=== PATIENT | female | born 1945 | race Caucasian/White ===

== ENCOUNTER 2019-09-12 12:17 | Inpatient (IN) ==
[2019-09-12] MEDS ORDERED: Naloxone 0.4 MG/ML INJ IVP PRN (17:09)
[2019-09-12] MEDS ORDERED: D5% in Water 1,000 ML IVC PRN (18:56)
[2019-09-12] MEDS ORDERED: Dextrose Gel 15 GM/37.5 ML TUBE PO PRN ×2 (18:56)
[2019-09-12] MEDS ORDERED: *HR* Dextrose 50 % in Water (Syg) 50 ML SYRINGE IVP PRN (18:56)
[2019-09-12 19:42] LABS: Basophils % 0.5 %
[2019-09-12 19:44] LABS: Immature Platelets 10.4 % (1.1-6.1)
[2019-09-12 19:51] LABS: Eosinophils # 0.2 K/mcL (0.0-0.6); Hematocrit 35.5 % (35.3-44.9); Immature Granulocytes % 0.8 % (0-4); Lymphocytes # 1.5 K/mcL (0.6-4.6); Lymphocytes % 16.9 %; Mean Corpuscular Hemoglobin 27.4 pg (28.0-33.3); Mean Corpuscular Volume 88.3 fL (83.0-100.0); Mean Platelet Volume 12.8 fL (9.4-12.4); Monocytes # 0.8 K/mcL (0.0-1.3); Monocytes % 9.1 %; Platelet Count 132 K/mcL (140-400); Red Blood Count 4.02 M/mcL (3.82-4.97); Red Cell Distribution Width 19.5 % (11.5-14.5); Segmented Neutrophils % 70.7 %; White Blood Count 8.7 K/mcL (4.3-11.1)
[2019-09-12 20:03] LABS: Estimated Average Glucose 151 mg/dl
[2019-09-12 20:04] LABS: BUN/Creatinine Ratio 10 (6-26); Blood Urea Nitrogen 9 mg/dL (8-23); Calcium 8.5 mg/dL (8.6-10.3); Carbon Dioxide 24 mEq/L (23-29); Chloride 103 mEq/L (98-107); Glucose 168 mg/dL (70-105); Magnesium 1.4 mg/dL (1.6-2.6); Osmolality,Calculated 289 (280-300); Potassium 3.1 mEq/L (3.5-5.1); Sodium 138 mEq/L (136-145); Troponin I 0.03 ng/mL (< 0.04); eGFR For African Americans > 60 (> 60); eGFR For Non-African Americans > 60 (> 60)
[2019-09-12 20:10] LABS: Albumin 3.4 g/dL (3.5-5.7); Albumin/Globulin Ratio 1.1 (1.1-2.2); Bilirubin,Direct 0.3 mg/dL (0.0-0.2); Bilirubin,Indirect 0.5 mg/dL (0.0-1.0); Bilirubin,Total 0.8 mg/dL (0.3-1.0); Globulin 3.1 g/dL (2.4-3.5); Total Protein 6.5 g/dL (6.4-8.9)
[2019-09-12] MEDS ORDERED: Potassium Chloride 40 MEQ, Lidocaine 1% 2 ML in 0.9 % Sodium Chloride 500 ML IVPB ONE (20:17)
[2019-09-12 20:18] LABS: Neutrophils # 6.2 K/mcL (1.6-8.9)
[2019-09-12 20:19] LABS: Platelet Estimate Normal (Normal)
[2019-09-12 20:20] LABS: Anisocytosis 1+ (Not Present)
[2019-09-12 20:56] LABS: VBG HCO3 27 mEq/L (21-27); VBG PCO2 47 mmHg (41-51); VBG PH 7.38 pH Units (7.32-7.42); VBG PO2 51 mmHg (25-50)
[2019-09-12] MEDS ORDERED: Acetaminophen 325 MG TABLET PO PRN (21:23)
[2019-09-12] MEDS ORDERED: Ondansetron 4 MG/2 ML VIAL IVP PRN (21:23)
[2019-09-12] MEDS: *HR* Heparin 5,000 UNIT/ML VIAL SQ SCH (21:53)
[2019-09-12] MEDS ORDERED: Ipratropium/Albuterol Neb 3 ML IH PRN (22:00)
[2019-09-12] MEDS: Pregabalin 75 MG CAPSULE PO SCH (22:00)
[2019-09-12] MEDS: Sucralfate 1 GM TABLET PO SCH (22:00)
[2019-09-13] MEDS: Insulin LISPRO 300 UNITS/3 ML VIAL SQ SCH ×4 (00:04→17:25)
[2019-09-13 01:15] LABS: Hemoglobin 10.6 g/dL (11.5-15.4)
[2019-09-13 01:17] LABS: Basophils # 0.1 K/mcL (0.0-0.2); Basophils % 0.8 %; Eosinophils # 0.2 K/mcL (0.0-0.6); Eosinophils % 2.5 %; Hematocrit 34.6 % (35.3-44.9); Immature Platelets 10.8 % (1.1-6.1); Lymphocytes # 1.5 K/mcL (0.6-4.6); Lymphocytes % 18.4 %; Mean Corpuscular HGB Conc 30.6 g/dL (31.6-35.5); Mean Corpuscular Hemoglobin 26.5 pg (28.0-33.3); Mean Corpuscular Volume 86.5 fL (83.0-100.0); Mean Platelet Volume 12.1 fL (9.4-12.4); Monocytes # 0.9 K/mcL (0.0-1.3); Monocytes % 11.3 %; Neutrophils # 5.2 K/mcL (1.6-8.9); Platelet Count 112 K/mcL (140-400); Red Cell Distribution Width 19.6 % (11.5-14.5); White Blood Count 7.9 K/mcL (4.3-11.1)
[2019-09-13 01:26] LABS: BUN/Creatinine Ratio 9 (6-26); Blood Urea Nitrogen 8 mg/dL (8-23); Calcium 8.4 mg/dL (8.6-10.3); Carbon Dioxide 24 mEq/L (23-29); Chloride 107 mEq/L (98-107); Glucose 113 mg/dL (70-105); Magnesium 2.2 mg/dL (1.6-2.6); Osmolality,Calculated 287 (280-300); Potassium 3.4 mEq/L (3.5-5.1); Sodium 139 mEq/L (136-145); eGFR For African Americans > 60 (> 60); eGFR For Non-African Americans > 60 (> 60)
[2019-09-13 01:39] LABS: Thyroid Stimulating Hormone 4.015 mcIU/mL (0.340-5.600)
[2019-09-13 03:25] LABS: Hepatitis A Antibody IgM Nonreactive (Nonreactive)
[2019-09-13 03:38] LABS: Hepatitis C Virus Antibody Nonreactive (Nonreactive)
[2019-09-13 04:00] LABS: Hepatitis B Surface Antigen Reactive (Nonreactive)
[2019-09-13] MEDS: *HR* Heparin 5,000 UNIT/ML VIAL SQ SCH ×3 (05:31→22:49)
[2019-09-13 07:46] LABS: ABG Base Excess 0 mEq/L (-2 to 3); ABG HCO3 25 mEq/L (21-27); ABG Oxygen Saturation 97 % (95-98); ABG PCO2 40 mmHg (35-45); ABG PO2 88 mmHg (85-104); ABG TCO2 26 mEq/L (20-26)
[2019-09-13] MEDS ORDERED: Loratadine 10 MG TABLET PO SCH (09:00)
[2019-09-13] MEDS: Folic Acid 1 MG TABLET PO SCH (11:56)
[2019-09-13] MEDS: Cholecalciferol (D-3) 1,000 UNIT (25MCG) TABLET PO SCH (11:56)
[2019-09-13] MEDS: Aspirin 81 MG TAB.CHEW PO SCH (11:56)
[2019-09-13] MEDS: Sucralfate 1 GM TABLET PO SCH ×3 (11:56→20:24)
[2019-09-13] MEDS: Furosemide 20 MG TABLET PO SCH (11:56)
[2019-09-13] MEDS: Pregabalin 75 MG CAPSULE PO SCH ×2 (11:57→20:25)
[2019-09-14] MEDS: Insulin LISPRO 300 UNITS/3 ML VIAL SQ SCH ×5 (00:54→23:46)
[2019-09-14 02:43] LABS: BUN/Creatinine Ratio 11 (6-26); Blood Urea Nitrogen 8 mg/dL (8-23); Calcium 8.7 mg/dL (8.6-10.3); Carbon Dioxide 23 mEq/L (23-29); Chloride 110 mEq/L (98-107); Glucose 124 mg/dL (70-105); Magnesium 1.6 mg/dL (1.6-2.6); Osmolality,Calculated 284 (280-300); Potassium 3.4 mEq/L (3.5-5.1); Sodium 137 mEq/L (136-145); eGFR For African Americans > 60 (> 60); eGFR For Non-African Americans > 60 (> 60)
[2019-09-14 03:02] LABS: Basophils % 0.8 %; Eosinophils # 0.2 K/mcL (0.0-0.6); Eosinophils % 3.4 %; Hemoglobin 10.3 g/dL (11.5-15.4); Lymphocytes # 1.1 K/mcL (0.6-4.6); Lymphocytes % 21.1 %; Mean Corpuscular HGB Conc 31.2 g/dL (31.6-35.5); Mean Corpuscular Hemoglobin 26.7 pg (28.0-33.3); Mean Corpuscular Volume 85.5 fL (83.0-100.0); Monocytes # 0.6 K/mcL (0.0-1.3); Monocytes % 10.5 %; Red Blood Count 3.86 M/mcL (3.82-4.97); Red Cell Distribution Width 19.8 % (11.5-14.5); Segmented Neutrophils % 63.2 %; White Blood Count 5.3 K/mcL (4.3-11.1)
[2019-09-14 03:10] LABS: Folate > 22.3 ng/mL (3.0-16.0); Vitamin B12 352 pg/mL (250-1100)
[2019-09-14 04:04] LABS: Neutrophils # 3.4 K/mcL (1.6-8.9); Platelet Count 97 K/mcL (140-400)
[2019-09-14 04:07] LABS: Platelet Estimate Decreased (Normal)
[2019-09-14] MEDS: *HR* Heparin 5,000 UNIT/ML VIAL SQ SCH ×3 (05:32→21:12)
[2019-09-14 06:30] LABS: ABG Base Excess 2 mEq/L (-2 to 3); ABG HCO3 25 mEq/L (21-27); ABG Oxygen Saturation 95 % (95-98); ABG PCO2 32 mmHg (35-45); ABG PH 7.51 pH Units (7.32-7.45); ABG PO2 68 mmHg (85-104); ABG TCO2 26 mEq/L (20-26)
[2019-09-14] MEDS: Aspirin 81 MG TAB.CHEW PO SCH (08:44)
[2019-09-14] MEDS: Furosemide 20 MG TABLET PO SCH (08:44)
[2019-09-14] MEDS: Pregabalin 75 MG CAPSULE PO SCH ×2 (08:46→20:20)
[2019-09-14] MEDS: Sucralfate 1 GM TABLET PO SCH ×3 (08:46→20:20)
[2019-09-14] MEDS: Folic Acid 1 MG TABLET PO SCH (08:46)
[2019-09-14] MEDS: Cholecalciferol (D-3) 1,000 UNIT (25MCG) TABLET PO SCH (12:48)
[2019-09-14] MEDS: Lactulose Oral Soln 20 GM/30 ML UDC PO ONE ×2 (13:29→14:49)
[2019-09-15] MEDS: *HR* Heparin 5,000 UNIT/ML VIAL SQ SCH ×3 (05:28→21:13)
[2019-09-15] MEDS: Insulin LISPRO 300 UNITS/3 ML VIAL SQ SCH ×3 (05:55→20:00)
[2019-09-15] MEDS: Pregabalin 75 MG CAPSULE PO SCH ×2 (08:53→20:17)
[2019-09-15] MEDS: Folic Acid 1 MG TABLET PO SCH (08:53)
[2019-09-15] MEDS: Sucralfate 1 GM TABLET PO SCH ×3 (08:53→20:17)
[2019-09-15] MEDS: Aspirin 81 MG TAB.CHEW PO SCH (08:54)
[2019-09-15] MEDS: Furosemide 20 MG TABLET PO SCH (08:54)
[2019-09-15] MEDS ORDERED: 0.9 % Sodium Chloride 500 ML IV ONE (11:36)
[2019-09-15] MEDS ORDERED: Lactulose Oral Soln 20 GM/30 ML UDC PO PRN (14:23)
[2019-09-15] MEDS: Cholecalciferol (D-3) 1,000 UNIT (25MCG) TABLET PO SCH (14:26)
[2019-09-16] MEDS: *HR* Heparin 5,000 UNIT/ML VIAL SQ SCH ×3 (06:06→21:16)
[2019-09-16] MEDS: Insulin LISPRO 300 UNITS/3 ML VIAL SQ SCH ×4 (06:06→21:16)
[2019-09-16] MEDS: Aspirin 81 MG TAB.CHEW PO SCH (08:07)
[2019-09-16] MEDS: Cholecalciferol (D-3) 1,000 UNIT (25MCG) TABLET PO SCH (08:07)
[2019-09-16] MEDS: Sucralfate 1 GM TABLET PO SCH ×3 (08:08→21:26)
[2019-09-16] MEDS: Folic Acid 1 MG TABLET PO SCH (08:08)
[2019-09-16] MEDS: Furosemide 20 MG TABLET PO SCH (08:08)
[2019-09-16] MEDS: Pregabalin 75 MG CAPSULE PO SCH ×2 (08:08→21:25)
[2019-09-17] MEDS: *HR* Heparin 5,000 UNIT/ML VIAL SQ SCH ×3 (06:02→21:29)
[2019-09-17] MEDS: Insulin LISPRO 300 UNITS/3 ML VIAL SQ SCH ×4 (08:23→21:28)
[2019-09-17] MEDS: Pregabalin 75 MG CAPSULE PO SCH ×2 (09:28→21:29)
[2019-09-17] MEDS: Sucralfate 1 GM TABLET PO SCH ×3 (09:28→21:30)
[2019-09-17] MEDS: Folic Acid 1 MG TABLET PO SCH (09:29)
[2019-09-17] MEDS: Furosemide 20 MG TABLET PO SCH (09:29)
[2019-09-17] MEDS: Aspirin 81 MG TAB.CHEW PO SCH (09:29)
[2019-09-17] MEDS: Cholecalciferol (D-3) 1,000 UNIT (25MCG) TABLET PO SCH (09:29)
[2019-09-17] MEDS: Menthol 9.1 MG LOZENGE PO PRN (21:34)
[2019-09-18] MEDS: *HR* Heparin 5,000 UNIT/ML VIAL SQ SCH ×3 (05:37→20:38)
[2019-09-18] MEDS: Insulin LISPRO 300 UNITS/3 ML VIAL SQ SCH ×4 (06:55→17:05)
[2019-09-18] MEDS: Cholecalciferol (D-3) 1,000 UNIT (25MCG) TABLET PO SCH ×2 (06:56→08:34)
[2019-09-18] MEDS: Aspirin 81 MG TAB.CHEW PO SCH (08:32)
[2019-09-18] MEDS: Sucralfate 1 GM TABLET PO SCH ×3 (08:32→20:38)
[2019-09-18] MEDS: Folic Acid 1 MG TABLET PO SCH (08:33)
[2019-09-18] MEDS: Furosemide 20 MG TABLET PO SCH (08:33)
[2019-09-18] MEDS: Pregabalin 75 MG CAPSULE PO SCH ×2 (08:34→20:38)
[2019-09-18] MEDS: Menthol 9.1 MG LOZENGE PO PRN (17:09)
[2019-09-18] MEDS ORDERED: Insulin LISPRO 300 UNITS/3 ML VIAL SQ SCH (21:00)
[2019-09-19] MEDS: *HR* Heparin 5,000 UNIT/ML VIAL SQ SCH ×2 (05:45→14:09)
[2019-09-19] MEDS: Insulin LISPRO 300 UNITS/3 ML VIAL SQ SCH ×2 (07:36→11:36)
[2019-09-19] MEDS: Aspirin 81 MG TAB.CHEW PO SCH (07:37)
[2019-09-19] MEDS: Sucralfate 1 GM TABLET PO SCH ×2 (07:37→14:10)
[2019-09-19] MEDS: Pregabalin 75 MG CAPSULE PO SCH (07:37)
[2019-09-19] MEDS: Furosemide 20 MG TABLET PO SCH (07:37)
[2019-09-19] MEDS: Cholecalciferol (D-3) 1,000 UNIT (25MCG) TABLET PO SCH (07:38)
[2019-09-19] MEDS: Folic Acid 1 MG TABLET PO SCH (07:38)
[2019-09-19 11:34] VITALS: BP 134/73
== END 2019-09-19 16:55 | DRG 52 ==
LOC: 3BNU → SUATTDRO 15:52
PROVIDERS: ADMIT Pharmacist; ATTEND Internal Medicine

== ENCOUNTER 2019-10-07 13:12 | Observation (INO) ==
[2019-10-07 13:52] LABS: Basophils % 0.9 %; Red Cell Distribution Width 18.5 % (11.5-14.5); Segmented Neutrophils % 61.8 %
[2019-10-07 13:54] LABS: Basophils # 0.1 K/mcL (0.0-0.2); Eosinophils # 0.2 K/mcL (0.0-0.6); Eosinophils % 2.2 %; Hematocrit 47.9 % (35.3-44.9); Immature Granulocytes % 1.6 % (0-4); Immature Platelets 16.1 % (1.1-6.1); Lymphocytes # 2.7 K/mcL (0.6-4.6); Lymphocytes % 24.8 %; Mean Corpuscular HGB Conc 29.2 g/dL (31.6-35.5); Monocytes # 0.9 K/mcL (0.0-1.3); Monocytes % 8.7 %; Neutrophils # 6.6 K/mcL (1.6-8.9); Platelet Count 206 K/mcL (140-400); Red Blood Count 5.38 M/mcL (3.82-4.97); White Blood Count 10.7 K/mcL (4.3-11.1)
[2019-10-07 14:19] LABS: Platelet Estimate Normal (Normal)
[2019-10-07 14:56] LABS: INR 1.4; Prothrombin Time 15.5 Seconds (9.4-12.1)
[2019-10-07 14:58] LABS: Activated Partial Thrombo Time 29.7 Seconds (26.0-36.0)
[2019-10-07 15:11] LABS: Albumin 3.9 g/dL (3.5-5.7); Albumin/Globulin Ratio 1.3 (1.1-2.2); Bilirubin,Direct 0.4 mg/dL (0.0-0.2); Bilirubin,Indirect 0.7 mg/dL (0.0-1.0); Bilirubin,Total 1.1 mg/dL (0.3-1.0); Calcium 9.8 mg/dL (8.6-10.3); Potassium 3.8 mEq/L (3.5-5.1); Total Protein 6.9 g/dL (6.4-8.9)
[2019-10-07 15:55] LABS: Bilirubin,Urine Negative (Negative); Blood,Urine Negative (Negative); Color,Urine Yellow (Yellow); Glucose,Urine (UA) Normal (Normal); Ketones,Urine Negative (Negative); Leukocyte Esterase,Urine Large (Negative); Nitrite,Urine Negative (Negative); PH,Urine 5.5 pH Units (5.0-8.0); Protein,Urine Negative (Neg-Trace); Specific Gravity,Urine 1.019 (1.010-1.025); Urobilinogen,Urine Normal (Normal)
[2019-10-07 15:56] LABS: Bacteria,Urine None Seen per hpf (None-Few); Hyaline Casts,Urine None Seen per lpf (None-Few); RBC,Urine 0-3 per hpf (0-3); Squamous Epithelial Cell,Urine Many per lpf (None-Few); WBC,Urine 15-30 per hpf (0-3)
[2019-10-07 15:59] LABS: Clarity,Urine Clear (Clear)
[2019-10-07] MEDS ORDERED: cefTRIAXone 1,000 MG in Water for inj. (sterile) 10 ML IVP ONE (16:01)
[2019-10-07] MEDS ORDERED: 0.9 % Sodium Chloride 1,000 ML ONE (16:07)
[2019-10-07] MEDS ORDERED: 0.9 % Sodium Chloride 1,000 ML IV ONE (16:19)
[2019-10-07] MEDS ORDERED: *HR* HYDROcodone/Acet 5/325 mg TABLET PO ONE (16:20)
[2019-10-07] MEDS ORDERED: Ipratropium/Albuterol Neb 3 ML IH PRN (16:22)
[2019-10-07] MEDS ORDERED: *HR* HYDROcodone/Acet 7.5/325 mg TABLET PO PRN (16:22)
[2019-10-07] MEDS ORDERED: Mag Hydrox/Al Hydrox/Simeth 30 ML UDC PO PRN (16:27)
[2019-10-07] MEDS ORDERED: Acetaminophen 325 MG TABLET PO PRN (16:27)
[2019-10-07] MEDS ORDERED: Ondansetron ODT 4 MG TAB.RAPDIS SL PRN (16:27)
[2019-10-07] MEDS ORDERED: MOM Conc 10 ML UD.LIQ PO PRN (16:27)
[2019-10-07] MEDS ORDERED: Naloxone 0.4 MG/ML INJ IVP PRN (16:27)
[2019-10-07] MEDS: 0.9 % Sodium Chloride 1,000 ML IVC SCH (17:48)
[2019-10-07] MEDS ORDERED: *HR* Dextrose 50 % in Water (Syg) 50 ML SYRINGE IVP PRN (17:57)
[2019-10-07] MEDS ORDERED: D5% in Water 1,000 ML IVC PRN (17:57)
[2019-10-07] MEDS ORDERED: Dextrose Gel 15 GM/37.5 ML TUBE PO PRN ×2 (17:57)
[2019-10-07] MEDS: Insulin LISPRO 300 UNITS/3 ML VIAL SQ SCH (19:38)
[2019-10-07 19:40] LABS: Adenovirus Not Detected (Not Detect); Coronavirus 229E Not Detected (Not Detect); Coronavirus HKU1 Not Detected (Not Detect); Coronavirus NL63 Not Detected (Not Detect); Coronavirus OC43 Not Detected (Not Detect); Human Metapneumovirus Not Detected (Not Detect); Human Rhinovirus/Enterovirus Not Detected (Not Detect); Influenza A Subtype 2009 H1 Not Detected (Not Detect)
[2019-10-07 19:41] LABS: Bordetella Pertussis Not Detected (Not Detect); Chlamydophila pneumoniae Not Detected (Not Detect); Influenza B Not Detected (Not Detect); Mycoplasma pneumoniae Not Detected (Not Detect); Parainfluenza Virus 1 Not Detected (Not Detect); Parainfluenza Virus 2 Not Detected (Not Detect); Parainfluenza Virus 3 Not Detected (Not Detect); Parainfluenza Virus 4 Not Detected (Not Detect); Respiratory Syncytial Virus Not Detected (Not Detect)
[2019-10-07] MEDS: Sucralfate 1 GM TABLET PO SCH (21:03)
[2019-10-08 01:17] LABS: Mean Corpuscular Volume 88.4 fL (83.0-100.0)
[2019-10-08 01:19] LABS: Hematocrit 38.8 % (35.3-44.9); Hemoglobin 11.9 g/dL (11.5-15.4); Immature Platelets 11.6 % (1.1-6.1); Mean Corpuscular HGB Conc 30.7 g/dL (31.6-35.5); Mean Corpuscular Hemoglobin 27.1 pg (28.0-33.3); Platelet Count 125 K/mcL (140-400); Red Blood Count 4.39 M/mcL (3.82-4.97); White Blood Count 6.5 K/mcL (4.3-11.1)
[2019-10-08 01:36] LABS: BUN/Creatinine Ratio 19 (6-26); Blood Urea Nitrogen 20 mg/dL (8-23); Calcium 8.7 mg/dL (8.6-10.3); Carbon Dioxide 23 mEq/L (23-29); Chloride 110 mEq/L (98-107); Glucose 99 mg/dL (70-105); Osmolality,Calculated 291 (280-300); Phosphorous 3.2 mg/dL (2.7-4.5); Potassium 3.6 mEq/L (3.5-5.1); Sodium 139 mEq/L (136-145); eGFR For African Americans > 60 (> 60); eGFR For Non-African Americans 50 (> 60)
[2019-10-08] MEDS: 0.9 % Sodium Chloride 1,000 ML IVC SCH (05:29)
[2019-10-08] MEDS: Insulin LISPRO 300 UNITS/3 ML VIAL SQ SCH ×4 (08:21→20:11)
[2019-10-08] MEDS: Sucralfate 1 GM TABLET PO SCH ×4 (08:24→20:10)
[2019-10-08] MEDS: Folic Acid 1 MG TABLET PO SCH (08:24)
[2019-10-08] MEDS: Furosemide 20 MG TABLET PO SCH (08:25)
[2019-10-08] MEDS: Aspirin 81 MG TAB.CHEW PO SCH (08:25)
[2019-10-08] MEDS: Lactulose Oral Soln 20 GM/30 ML UDC PO SCH ×3 (10:22→20:10)
[2019-10-08] MEDS: cefTRIAXone 1,000 MG in Water for inj. (sterile) 10 ML IVP SCH (10:22)
[2019-10-09 04:19] LABS: Red Cell Distribution Width 18.2 % (11.5-14.5)
[2019-10-09 04:21] LABS: Hematocrit 47.1 % (35.3-44.9); Hemoglobin 13.9 g/dL (11.5-15.4); Immature Platelets 15.7 % (1.1-6.1); Mean Corpuscular HGB Conc 29.5 g/dL (31.6-35.5); Mean Corpuscular Hemoglobin 26.2 pg (28.0-33.3); Mean Corpuscular Volume 88.7 fL (83.0-100.0); Platelet Count 186 K/mcL (140-400); Red Blood Count 5.31 M/mcL (3.82-4.97); White Blood Count 11.2 K/mcL (4.3-11.1)
[2019-10-09 04:39] LABS: BUN/Creatinine Ratio 12 (6-26); Blood Urea Nitrogen 13 mg/dL (8-23); Calcium 9.5 mg/dL (8.6-10.3); Carbon Dioxide 22 mEq/L (23-29); Chloride 107 mEq/L (98-107); Glucose 133 mg/dL (70-105); Osmolality,Calculated 294 (280-300); Potassium 3.5 mEq/L (3.5-5.1); Sodium 141 mEq/L (136-145); eGFR For African Americans > 60 (> 60); eGFR For Non-African Americans 50 (> 60)
[2019-10-09] MEDS: cefTRIAXone 1,000 MG in Water for inj. (sterile) 10 ML IVP SCH (07:50)
[2019-10-09] MEDS: Lactulose Oral Soln 20 GM/30 ML UDC PO SCH (07:51)
[2019-10-09] MEDS: Insulin LISPRO 300 UNITS/3 ML VIAL SQ SCH ×2 (07:51→11:44)
[2019-10-09] MEDS: Furosemide 20 MG TABLET PO SCH (07:51)
[2019-10-09] MEDS: Sucralfate 1 GM TABLET PO SCH ×2 (07:51→11:44)
[2019-10-09] MEDS: Folic Acid 1 MG TABLET PO SCH (07:51)
[2019-10-09] MEDS: Aspirin 81 MG TAB.CHEW PO SCH (07:51)
[2019-10-09 11:19] VITALS: BP 130/84
[2019-10-09 13:05] LABS: Hematocrit 44.5 % (35.3-44.9); Hemoglobin 13.5 g/dL (11.5-15.4); Mean Corpuscular HGB Conc 30.3 g/dL (31.6-35.5); Mean Corpuscular Hemoglobin 26.3 pg (28.0-33.3); Mean Corpuscular Volume 86.6 fL (83.0-100.0); Platelet Count 155 K/mcL (140-400); Red Blood Count 5.14 M/mcL (3.82-4.97); Red Cell Distribution Width 18.2 % (11.5-14.5); White Blood Count 9.8 K/mcL (4.3-11.1)
== END 2019-10-09 15:15 | disposition home or self-care (01) ==
LOC: 2ANU 13:12 → EMEROOARM 13:12 → SUATTDRO 16:18 → 2ANU 17:10
PROVIDERS: ADMIT Internal Medicine; ATTEND Internal Medicine

== ENCOUNTER 2019-11-27 05:58 | Inpatient (IN) ==
[2019-11-27] MEDS ORDERED: NiCARdipine 2.5 MG/10 ML Syringe IVPB ONE (06:44)
[2019-11-27] MEDS ORDERED: *HR* Vasopressin 20 UNIT/ML VIAL ONE (06:44)
[2019-11-27] MEDS ORDERED: Albumin Human 5% 12.5 GM/250 ML IV.SOLN ONE (06:44)
[2019-11-27] MEDS ORDERED: Plasma-Lyte A (PH 7.4) 1,000 ML IVC SCH (06:45)
[2019-11-27] MEDS ORDERED: Ringers Solution, Lactated 1,000 ML IVC SCH ×2 (06:45→07:15)
[2019-11-27] MEDS ORDERED: Lidocaine -MPF 4% 5 ML AMPUL ONE (06:54)
[2019-11-27] MEDS ORDERED: Ondansetron 4 MG/2 ML VIAL ONE (06:59)
[2019-11-27] MEDS ORDERED: Lidocaine -MPF 2% 2 ML VIAL ONE ×2 (06:59→07:17)
[2019-11-27] MEDS ORDERED: *HR* Heparin 5,000 UNIT/ML VIAL ONE (06:59)
[2019-11-27] MEDS ORDERED: Heparin 1,000 UNITS/500 mL 500 ML ONE ×2 (06:59→07:36)
[2019-11-27] MEDS ORDERED: *HR* FentaNYL (PF) 100 MCG/2 ML VIAL ONE ×2 (06:59→08:42)
[2019-11-27] MEDS ORDERED: *HR* Propofol 200 MG/20 ML VIAL IVP ONE (06:59)
[2019-11-27] MEDS ORDERED: *HR* Succinylcholine 200 MG/10 ML VIAL IVP ONE (06:59)
[2019-11-27] MEDS ORDERED: Dexamethasone 4 MG/ML VIAL ONE (06:59)
[2019-11-27] MEDS ORDERED: *HR* Midazolam HCl 2 MG/2 ML VIAL ONE (06:59)
[2019-11-27] MEDS ORDERED: *HR* Remifentanil 2 MG VIAL IVP ONE (06:59)
[2019-11-27] MEDS ORDERED: *HR* Phenylephrine 10 MG/ML VIAL ONE (06:59)
[2019-11-27] MEDS ORDERED: EPHEDrine 50 MG/ML VIAL ONE (06:59)
[2019-11-27] MEDS ORDERED: Famotidine 20 MG/2 ML VIAL IVP ONE (07:09)
[2019-11-27] MEDS ORDERED: Acetaminophen IV 1,000 MG/100 ML INFUS..BTL IVPB ONE (07:09)
[2019-11-27] MEDS ORDERED: *HR* OxyCODONE Immed Rel 5 MG TABLET PO PRN ×3 (07:10→15:34)
[2019-11-27] MEDS ORDERED: *HR* HYDROmorphone PF 0.5 MG/0.5 ML SYRINGE IVP PRN (07:10)
[2019-11-27] MEDS ORDERED: *HR* Promethazine 25 MG/ML VIAL IVP PRN (07:10)
[2019-11-27] MEDS ORDERED: Ondansetron 4 MG/2 ML VIAL IVP ONE (07:10)
[2019-11-27] MEDS ORDERED: *HR* Labetalol 20 MG/4 ML SYRINGE IVP PRN ×2 (07:10→15:34)
[2019-11-27] MEDS ORDERED: Protamine Sulfate 50 MG/5 ML VIAL IVP ONE (07:14)
[2019-11-27] MEDS ORDERED: Bupivacaine-MPF 0.25% 10 ML VIAL ONE (07:14)
[2019-11-27] MEDS ORDERED: *HR* Labetalol 20 MG/4 ML SYRINGE IVP ONE (09:26)
[2019-11-27] MEDS ORDERED: Vancomycin 1,000 MG, Sodium Chloride IRRigation 1,000 ML IR ONE (10:55)
[2019-11-27] MEDS ORDERED: Ergocalciferol (VIT D2) 50,000 UNIT (1.25MG) CAP PO SCH (15:34)
[2019-11-27] MEDS ORDERED: Dextrose Gel 15 GM/37.5 ML TUBE PO PRN ×2 (15:34)
[2019-11-27] MEDS ORDERED: Ondansetron 4 MG/2 ML VIAL IVP PRN (15:34)
[2019-11-27] MEDS ORDERED: 0.9 % Sodium Chloride 1,000 ML IVC SCH (15:34)
[2019-11-27] MEDS ORDERED: *HR* HYDROcodone/Acet 5/325 mg TABLET PO PRN ×2 (15:34)
[2019-11-27] MEDS ORDERED: *HR* Dextrose 50 % in Water (Syg) 50 ML SYRINGE IVP PRN (15:34)
[2019-11-27] MEDS ORDERED: D5% in Water 1,000 ML IVC PRN (15:34)
[2019-11-27] MEDS ORDERED: Naloxone 0.4 MG/ML INJ IVP PRN (15:34)
[2019-11-27] MEDS ORDERED: Acetaminophen 325 MG TABLET PO PRN (15:34)
[2019-11-27] MEDS: Lactulose Oral Soln 20 GM/30 ML UDC PO SCH ×2 (15:57→20:57)
[2019-11-27] MEDS: Folic Acid 1 MG TABLET PO SCH (15:57)
[2019-11-27] MEDS: Aspirin 81 MG TAB.CHEW PO SCH (15:57)
[2019-11-27] MEDS: Furosemide 20 MG TABLET PO SCH (15:58)
[2019-11-27] MEDS: allopurinoL 300 MG TABLET PO SCH (15:58)
[2019-11-27] MEDS ORDERED: ceFAZolin 2,000 MG in 0.9 % Sodium Chloride 100 ML IVPB SCH (16:00)
[2019-11-27] MEDS: *HR* Metoprolol 5 MG/5 ML VIAL IVP SCH ×2 (17:42→23:39)
[2019-11-27] MEDS: Insulin LISPRO 300 UNITS/3 ML VIAL SQ SCH ×3 (17:54→21:11)
[2019-11-27] MEDS: Acetaminophen 325 MG TABLET PO PRN (18:22)
[2019-11-28] MEDS ORDERED: *HR* Heparin 5,000 UNIT/ML VIAL SQ SCH (06:00)
[2019-11-28] MEDS: *HR* Heparin 5,000 UNIT/ML VIAL SQ SCH ×2 (06:28→16:05)
[2019-11-28] MEDS: *HR* Metoprolol 5 MG/5 ML VIAL IVP SCH (06:28)
[2019-11-28] MEDS: Insulin LISPRO 300 UNITS/3 ML VIAL SQ SCH ×4 (07:58→21:40)
[2019-11-28] MEDS: Folic Acid 1 MG TABLET PO SCH (08:17)
[2019-11-28] MEDS: Lactulose Oral Soln 20 GM/30 ML UDC PO SCH ×3 (08:17→20:52)
[2019-11-28] MEDS: Aspirin 81 MG TAB.CHEW PO SCH (08:17)
[2019-11-28] MEDS: allopurinoL 300 MG TABLET PO SCH (08:17)
[2019-11-28] MEDS: Furosemide 20 MG TABLET PO SCH (08:17)
[2019-11-28] MEDS: Acetaminophen 325 MG TABLET PO PRN (13:39)
[2019-11-29] MEDS: *HR* Heparin 5,000 UNIT/ML VIAL SQ SCH ×2 (05:52→16:20)
[2019-11-29] MEDS: Insulin LISPRO 300 UNITS/3 ML VIAL SQ SCH ×4 (08:12→20:55)
[2019-11-29] MEDS: Furosemide 20 MG TABLET PO SCH (08:16)
[2019-11-29] MEDS: Folic Acid 1 MG TABLET PO SCH (08:16)
[2019-11-29] MEDS: allopurinoL 300 MG TABLET PO SCH (08:17)
[2019-11-29] MEDS: Aspirin 81 MG TAB.CHEW PO SCH (08:18)
[2019-11-29] MEDS: Lactulose Oral Soln 20 GM/30 ML UDC PO SCH ×3 (08:18→21:12)
[2019-11-30] MEDS: *HR* Heparin 5,000 UNIT/ML VIAL SQ SCH (06:08)
[2019-11-30] MEDS: Insulin LISPRO 300 UNITS/3 ML VIAL SQ SCH ×2 (07:29→11:53)
[2019-11-30] MEDS: Furosemide 20 MG TABLET PO SCH (08:25)
[2019-11-30] MEDS: allopurinoL 300 MG TABLET PO SCH (08:25)
[2019-11-30] MEDS: Aspirin 81 MG TAB.CHEW PO SCH (08:25)
[2019-11-30] MEDS: Folic Acid 1 MG TABLET PO SCH (08:25)
[2019-11-30] MEDS: Lactulose Oral Soln 20 GM/30 ML UDC PO SCH (08:26)
[2019-11-30 15:14] VITALS: BP 128/71
== END 2019-11-30 16:37 | disposition home or self-care (01) | DRG 24 ==
LOC: SAMDAY 05:58 → 3NENU 14:59
PROVIDERS: ADMIT Surgery; ATTEND Surgery

== ENCOUNTER 2020-05-08 14:41 | Observation (INO) ==
[2020-05-08 16:05] LABS: Eosinophils % 0.2 %; Immature Granulocytes % 0.9 % (0-4); Platelet Count 135 K/mcL (140-400)
[2020-05-08 16:06] LABS: Bilirubin,Urine Negative (Negative); Blood,Urine Negative (Negative); Clarity,Urine Clear (Clear); Color,Urine Yellow (Yellow); Glucose,Urine (UA) Normal (Normal); Ketones,Urine Negative (Negative); Leukocyte Esterase,Urine Negative (Negative); Nitrite,Urine Negative (Negative); PH,Urine 7.5 pH Units (5.0-8.0); Protein,Urine Trace mg/dL (Neg-Trace); Specific Gravity,Urine 1.015 (1.010-1.025); Urobilinogen,Urine Normal (Normal)
[2020-05-08 16:07] LABS: Basophils # 0.1 K/mcL (0.0-0.2); Basophils % 0.5 %; Hematocrit 52.2 % (35.3-44.9); Hemoglobin 16.5 g/dL (11.5-15.4); Immature Platelets 20.5 % (1.1-6.1); Lymphocytes # 1.9 K/mcL (0.6-4.6); Lymphocytes % 14.2 %; Mean Corpuscular HGB Conc 31.6 g/dL (31.6-35.5); Mean Corpuscular Hemoglobin 30.7 pg (28.0-33.3); Mean Corpuscular Volume 97.2 fL (83.0-100.0); Mean Platelet Volume 13.7 fL (9.4-12.4); Monocytes # 0.8 K/mcL (0.0-1.3); Monocytes % 6.2 %; Neutrophils # 10.3 K/mcL (1.6-8.9); Red Blood Count 5.37 M/mcL (3.82-4.97); Red Cell Distribution Width 14.8 % (11.5-14.5); White Blood Count 13.2 K/mcL (4.3-11.1)
[2020-05-08] MEDS ORDERED: Isovue-370 500 ML BOTTLE IVP ONE (16:15)
[2020-05-08 16:24] LABS: Albumin 4.4 g/dL (3.5-5.7); Albumin/Globulin Ratio 1.5 (1.1-2.2); Bilirubin,Total 1.7 mg/dL (0.3-1.0); Calcium 10.1 mg/dL (8.6-10.3); Potassium 3.7 mEq/L (3.5-5.1); Total Protein 7.4 g/dL (6.4-8.9)
[2020-05-08 16:31] LABS: Large Platelets Present (Not Present); Platelet Estimate Slight Decrease (Normal)
[2020-05-08] MEDS ORDERED: Ondansetron 4 MG/2 ML VIAL IVP ONE (16:35)
[2020-05-08 16:41] LABS: Troponin I 0.04 ng/mL (< 0.04)
[2020-05-08] MEDS ORDERED: Aspirin 81 MG TAB.CHEW PO ONE (17:00)
[2020-05-08] MEDS ORDERED: MetroNIDAZOLE 500 MG/100 ML 500 MG/100 ML BAG IVPB ONE (18:07)
[2020-05-08] MEDS ORDERED: Nitroglycerin 1 INCH/GM PACKET TP ONE (18:10)
[2020-05-08] MEDS ORDERED: Naloxone 0.4 MG/ML INJ IVP PRN (18:22)
[2020-05-08] MEDS: Lactulose Oral Soln 20 GM/30 ML UDC PO SCH (20:06)
[2020-05-08] MEDS: Pregabalin 75 MG CAPSULE PO SCH (20:07)
[2020-05-08] MEDS: Sucralfate 1 GM TABLET PO SCH (20:07)
[2020-05-08] MEDS: MetroNIDAZOLE 500 MG/100 ML 500 MG/100 ML BAG IVPB SCH (23:41)
[2020-05-09 05:23] LABS: Basophils # 0.1 K/mcL (0.0-0.2); Basophils % 0.7 %; Eosinophils # 0.1 K/mcL (0.0-0.6); Eosinophils % 0.9 %; Hematocrit 45.5 % (35.3-44.9); Hemoglobin 14.3 g/dL (11.5-15.4); Immature Granulocytes % 0.9 % (0-4); Immature Platelets 17.6 % (1.1-6.1); Lymphocytes # 1.9 K/mcL (0.6-4.6); Lymphocytes % 22.1 %; Mean Corpuscular HGB Conc 31.4 g/dL (31.6-35.5); Mean Corpuscular Hemoglobin 30.7 pg (28.0-33.3); Mean Corpuscular Volume 97.6 fL (83.0-100.0); Mean Platelet Volume 13.5 fL (9.4-12.4); Monocytes # 0.8 K/mcL (0.0-1.3); Monocytes % 9.3 %; Neutrophils # 5.6 K/mcL (1.6-8.9); Red Blood Count 4.66 M/mcL (3.82-4.97); Red Cell Distribution Width 14.9 % (11.5-14.5); Segmented Neutrophils % 66.1 %; White Blood Count 8.5 K/mcL (4.3-11.1)
[2020-05-09 05:32] LABS: BUN/Creatinine Ratio 15 (6-26); Blood Urea Nitrogen 15 mg/dL (8-23); Calcium 9.1 mg/dL (8.6-10.3); Carbon Dioxide 29 mEq/L (23-29); Chloride 105 mEq/L (98-107); Glucose 82 mg/dL (70-105); Osmolality,Calculated 294 (280-300); Potassium 3.3 mEq/L (3.5-5.1); Sodium 142 mEq/L (136-145); eGFR For African Americans > 60 (> 60); eGFR For Non-African Americans 53 (> 60)
[2020-05-09 05:45] LABS: Platelet Count 95 K/mcL (140-400)
[2020-05-09 05:46] LABS: Platelet Estimate Slight Decrease (Normal)
[2020-05-09] MEDS ORDERED: Furosemide 20 MG TABLET PO SCH (09:00)
[2020-05-09] MEDS: Famotidine 20 MG TABLET PO SCH (09:10)
[2020-05-09] MEDS: allopurinoL 300 MG TABLET PO SCH (09:10)
[2020-05-09] MEDS: Pregabalin 75 MG CAPSULE PO SCH ×2 (09:10→20:51)
[2020-05-09] MEDS: Aspirin 81 MG TAB.CHEW PO SCH (09:10)
[2020-05-09] MEDS: Lactulose Oral Soln 20 GM/30 ML UDC PO SCH ×3 (09:10→20:51)
[2020-05-09] MEDS: Folic Acid 1 MG TABLET PO SCH (09:10)
[2020-05-09] MEDS: Sucralfate 1 GM TABLET PO SCH ×2 (09:10→17:02)
[2020-05-09] MEDS: MetroNIDAZOLE 500 MG/100 ML 500 MG/100 ML BAG IVPB SCH ×3 (09:11→23:07)
[2020-05-09] MEDS ORDERED: 0.9 % Sodium Chloride 500 ML IVC SCH (10:15)
[2020-05-09] MEDS ORDERED: *HR* Heparin 5,000 UNIT/ML VIAL SQ SCH (10:30)
[2020-05-09] MEDS ORDERED: Lactulose Oral Soln 20 GM/30 ML UDC PO PRN (11:51)
[2020-05-09] MEDS ORDERED: Potassium Chloride Elixir 20 MEQ/15 ML UDC PO ONE (11:56)
[2020-05-09] MEDS: *HR* HYDROcodone/Acet 7.5/325 mg TABLET PO PRN (14:26)
[2020-05-09] MEDS: predniSONE 5 MG TABLET PO SCH (14:29)
[2020-05-10 01:37] LABS: Mean Corpuscular Volume 99.3 fL (83.0-100.0)
[2020-05-10 01:39] LABS: Basophils % 0.6 %; Eosinophils % 0.6 %; Hematocrit 43.4 % (35.3-44.9); Hemoglobin 13.5 g/dL (11.5-15.4); Immature Granulocytes % 0.7 % (0-4); Immature Platelets 17.8 % (1.1-6.1); Lymphocytes # 1.3 K/mcL (0.6-4.6); Lymphocytes % 17.8 %; Mean Corpuscular HGB Conc 31.1 g/dL (31.6-35.5); Mean Corpuscular Hemoglobin 30.9 pg (28.0-33.3); Mean Platelet Volume 13.7 fL (9.4-12.4); Monocytes # 0.6 K/mcL (0.0-1.3); Monocytes % 7.6 %; Neutrophils # 5.2 K/mcL (1.6-8.9); Platelet Count 83 K/mcL (140-400); Red Blood Count 4.37 M/mcL (3.82-4.97); Red Cell Distribution Width 14.6 % (11.5-14.5); Segmented Neutrophils % 72.7 %; White Blood Count 7.2 K/mcL (4.3-11.1)
[2020-05-10 02:09] LABS: Calcium 8.9 mg/dL (8.6-10.3); Magnesium 1.5 mg/dL (1.6-2.6); Potassium 4.6 mEq/L (3.5-5.1)
[2020-05-10] MEDS ORDERED: 0.9 % Sodium Chloride 1,000 ML IVC SCH (07:45)
[2020-05-10] MEDS: Lactulose Oral Soln 20 GM/30 ML UDC PO SCH ×3 (09:11→20:30)
[2020-05-10] MEDS: Sucralfate 1 GM TABLET PO SCH ×2 (09:12→17:31)
[2020-05-10] MEDS: predniSONE 5 MG TABLET PO SCH (09:12)
[2020-05-10] MEDS: Metoprolol XL (24 HR) Succ 25 MG TAB.ER.24H PO SCH (09:12)
[2020-05-10] MEDS: Aspirin 81 MG TAB.CHEW PO SCH (09:12)
[2020-05-10] MEDS: Folic Acid 1 MG TABLET PO SCH (09:12)
[2020-05-10] MEDS: allopurinoL 300 MG TABLET PO SCH (09:13)
[2020-05-10] MEDS: Pregabalin 75 MG CAPSULE PO SCH ×2 (09:13→20:30)
[2020-05-10] MEDS: Famotidine 20 MG TABLET PO SCH (09:13)
[2020-05-10] MEDS: MetroNIDAZOLE 500 MG/100 ML 500 MG/100 ML BAG IVPB SCH (09:14)
[2020-05-10] MEDS: TENOFOVIR ALAFENAMIDE FUMARATE 25 MG PO SCH (09:35)
[2020-05-10] MEDS: *HR* HYDROcodone/Acet 7.5/325 mg TABLET PO PRN (17:31)
[2020-05-10] MEDS: metroNIDAZOLE 500 MG TABLET PO SCH ×2 (17:31→20:30)
[2020-05-11 03:49] LABS: Calcium 8.2 mg/dL (8.6-10.3); Potassium 4.6 mEq/L (3.5-5.1)
[2020-05-11 06:57] VITALS: BP 121/59
[2020-05-11] MEDS ORDERED: FLU Vac QV 20-21 (6Month+)/PF 0.5 ML SYRINGE IM ONE (09:12)
[2020-05-11] MEDS: Folic Acid 1 MG TABLET PO SCH (09:13)
[2020-05-11] MEDS: predniSONE 5 MG TABLET PO SCH (09:14)
[2020-05-11] MEDS: Famotidine 20 MG TABLET PO SCH (09:14)
[2020-05-11] MEDS: metroNIDAZOLE 500 MG TABLET PO SCH (09:14)
[2020-05-11] MEDS: Sucralfate 1 GM TABLET PO SCH (09:14)
[2020-05-11] MEDS: Pregabalin 75 MG CAPSULE PO SCH (09:14)
[2020-05-11] MEDS: Metoprolol XL (24 HR) Succ 25 MG TAB.ER.24H PO SCH (09:15)
[2020-05-11] MEDS: Aspirin 81 MG TAB.CHEW PO SCH (09:15)
[2020-05-11] MEDS: allopurinoL 300 MG TABLET PO SCH (09:15)
[2020-05-11] MEDS: TENOFOVIR ALAFENAMIDE FUMARATE 25 MG PO SCH (09:15)
[2020-05-11] MEDS: Lactulose Oral Soln 20 GM/30 ML UDC PO SCH (09:15)
== END 2020-05-11 11:27 | disposition home or self-care (01) ==
LOC: 2ANU 14:41 → EMEROOARM 14:41 → SUATTDRO 18:33 → 2ANU 19:35
PROVIDERS: ADMIT Internal Medicine; ATTEND Internal Medicine

== ENCOUNTER 2021-06-30 13:07 | Inpatient (IN) ==
[2021-06-30] MEDS ORDERED: Ondansetron 4 MG/2 ML VIAL IVP PRN (15:49)
[2021-06-30] MEDS ORDERED: Naloxone 0.4 MG/ML INJ IVP PRN (15:49)
[2021-06-30] MEDS ORDERED: Isovue-370 500 ML BOTTLE IVP ONE (16:20)
[2021-06-30] MEDS ORDERED: Dextrose Gel 15 GM/37.5 ML TUBE PO PRN ×2 (16:25)
[2021-06-30] MEDS ORDERED: D5% in Water 1,000 ML IVC PRN (16:25)
[2021-06-30] MEDS ORDERED: *HR* Dextrose 50 % in Water (Syg) 50 ML SYRINGE IVP PRN (16:25)
[2021-06-30] MEDS: Insulin LISPRO 300 UNITS/3 ML VIAL SUBQ SCH (17:36)
[2021-06-30] MEDS ORDERED: Ipratropium/Albuterol Neb 3 ML IH PRN (18:01)
[2021-06-30] MEDS ORDERED: Morphine Sulfate 2 MG/ML SYRINGE IVP PRN (18:45)
[2021-06-30 19:09] LABS: Alanine Aminotransferase 8 Units/L (7-52); Albumin 3.7 g/dL (3.5-5.7); Albumin/Globulin Ratio 1.9 (1.1-2.2); Alkaline Phosphatase 52 Units/L (34-104); Aspartate Amino Transferase 24 Units/L (13-39); BUN/Creatinine Ratio 11 (6-26); Bilirubin,Direct 0.1 mg/dL (0.0-0.2); Bilirubin,Indirect 0.8 mg/dL (0.0-1.0); Bilirubin,Total 0.9 mg/dL (0.3-1.0); Blood Urea Nitrogen 10 mg/dL (8-23); Calcium 8.8 mg/dL (8.6-10.3); Carbon Dioxide 23 mEq/L (23-29); Chloride 107 mEq/L (98-107); Glucose 92 mg/dL (70-105); Magnesium 1.4 mg/dL (1.6-2.6); Osmolality,Calculated 287 (280-300); Phosphorous 2.9 mg/dL (2.7-4.5); Prolactin 8.98 ng/mL (3.80-23.20); Sodium 139 mEq/L (136-145); Total Protein 5.7 g/dL (6.4-8.9); Troponin I 0.04 ng/mL (< 0.04); eGFR For African Americans > 60 (> 60); eGFR For Non-African Americans 58 (> 60)
[2021-06-30 21:26] LABS: Basophils % 0.2 %; Eosinophils % 0.2 %; Hematocrit 45.5 % (35.3-44.9); Immature Granulocytes % 0.5 % (0-4); Lymphocytes % 10.2 %; Mean Corpuscular Hemoglobin 31.5 pg (28.0-33.3); Mean Corpuscular Volume 95.6 fL (83.0-100.0); Monocytes # 0.8 K/mcL (0.0-1.3); Monocytes % 8.1 %; Neutrophils # 7.6 K/mcL (1.6-8.9); Red Blood Count 4.76 M/mcL (3.82-4.97); Red Cell Distribution Width 13.4 % (11.5-14.5); Segmented Neutrophils % 80.8 %; White Blood Count 9.4 K/mcL (4.3-11.1)
[2021-06-30 21:27] LABS: Platelet Count 71 K/mcL (140-400)
[2021-06-30 21:28] LABS: VBG HCO3 23 mEq/L (21-27); VBG PCO2 33 mmHg (41-51); VBG PH 7.45 pH Units (7.32-7.42); VBG PO2 73 mmHg (25-50)
[2021-06-30 21:33] LABS: INR 1.3; Prothrombin Time 14.7 Seconds (9.4-12.1)
[2021-06-30 21:44] LABS: Beta-Hydroxybutyric Acid 1.1 mmol/L (0.02-0.27)
[2021-06-30 21:52] LABS: Procalcitonin 0.03 ng/mL (0.00-0.15)
[2021-07-01] MEDS: Insulin LISPRO 300 UNITS/3 ML VIAL SUBQ SCH ×5 (00:30→23:16)
[2021-07-01 02:03] LABS: Basophils % 0.3 %; Eosinophils % 0.2 %; Hematocrit 44.9 % (35.3-44.9); Hemoglobin 15.1 g/dL (11.5-15.4); Immature Granulocytes % 0.4 % (0-4); Lymphocytes % 10.4 %; Mean Corpuscular HGB Conc 33.6 g/dL (31.6-35.5); Mean Corpuscular Hemoglobin 32.3 pg (28.0-33.3); Mean Corpuscular Volume 96.1 fL (83.0-100.0); Mean Platelet Volume 12.1 fL (9.4-12.4); Monocytes # 0.8 K/mcL (0.0-1.3); Monocytes % 8.4 %; Neutrophils # 7.3 K/mcL (1.6-8.9); Red Blood Count 4.67 M/mcL (3.82-4.97); Red Cell Distribution Width 13.4 % (11.5-14.5); Segmented Neutrophils % 80.3 %; White Blood Count 9.1 K/mcL (4.3-11.1)
[2021-07-01 02:04] LABS: Platelet Count 67 K/mcL (140-400)
[2021-07-01 02:23] LABS: Chol/HDL Ratio 2.3 (0-4.9)
[2021-07-01 02:25] LABS: BUN/Creatinine Ratio 10 (6-26); Blood Urea Nitrogen 9 mg/dL (8-23); Calcium 8.9 mg/dL (8.6-10.3); Carbon Dioxide 20 mEq/L (23-29); Chloride 104 mEq/L (98-107); Glucose 101 mg/dL (70-105); Magnesium 1.4 mg/dL (1.6-2.6); Osmolality,Calculated 281 (280-300); Potassium 3.8 mEq/L (3.5-5.1); Sodium 136 mEq/L (136-145); eGFR For African Americans > 60 (> 60); eGFR For Non-African Americans > 60 (> 60)
[2021-07-01 11:54] LABS: Bilirubin,Urine Negative (Negative); Blood,Urine Negative (Negative); Clarity,Urine Clear (Clear); Color,Urine Light-Yellow (Yellow); Glucose,Urine (UA) Normal (Normal); Ketones,Urine 80 mg/dL (Negative); Leukocyte Esterase,Urine Negative (Negative); Nitrite,Urine Negative (Negative); PH,Urine 5.5 pH Units (5.0-8.0); Protein,Urine Trace mg/dL (Neg-Trace); Specific Gravity,Urine > 1.030 (1.010-1.025); Urobilinogen,Urine Normal (Normal)
[2021-07-01 12:04] LABS: Amphetamine Screen,Urine Negative ng/mL (Cutoff=1000); Barbiturate Screen,Urine Negative ng/mL (Cutoff=200); Benzodiazepines Screen,Urine Negative ng/mL (Cutoff=200); Cannabinoid Screen,Urine Negative ng/mL (Cutoff = 50); Cocaine Screen,Urine Negative ng/mL (Cutoff= 300); Opiate Screen,Urine Negative ng/mL (Cutoff=300); Phencyclidine Screen,Urine Negative ng/mL (Cutoff=25)
[2021-07-01] MEDS: *HR* HYDROcodone/Acet 7.5/325 mg TABLET PO PRN (13:15)
[2021-07-01] MEDS ORDERED: *HR* Heparin 5,000 UNIT/ML VIAL IVP PRN ×2 (15:17)
[2021-07-01] MEDS ORDERED: *HR* Heparin 5,000 UNIT/ML VIAL IVP ONE (15:17)
[2021-07-01] MEDS ORDERED: Heparin 25,000UNIT/250ML 1/2NS 25,000 UNIT/250 ML IV.SOLN IVC SCH (15:30)
[2021-07-01 16:22] LABS: Hemoglobin 14.6 g/dL (11.5-15.4); Mean Corpuscular HGB Conc 32.4 g/dL (31.6-35.5); Mean Corpuscular Hemoglobin 31.1 pg (28.0-33.3); Mean Corpuscular Volume 95.7 fL (83.0-100.0); Mean Platelet Volume 11.9 fL (9.4-12.4); Red Cell Distribution Width 13.4 % (11.5-14.5); White Blood Count 8.5 K/mcL (4.3-11.1)
[2021-07-01 16:23] LABS: Platelet Count 61 K/mcL (140-400)
[2021-07-01 16:34] LABS: Heparin anti-factor XA UFH < 0.04 IU/mL (0.30-0.70); INR 1.3
[2021-07-02] MEDS: Insulin LISPRO 300 UNITS/3 ML VIAL SUBQ SCH ×4 (05:32→20:16)
[2021-07-02] MEDS: *HR* HYDROcodone/Acet 7.5/325 mg TABLET PO PRN ×3 (05:49→20:16)
[2021-07-02] MEDS: Famotidine 20 MG TABLET PO SCH (08:07)
[2021-07-02] MEDS: hydrOXYzine pamoate 25 MG CAPSULE PO SCH (08:07)
[2021-07-02] MEDS: Aspirin 81 MG TAB.CHEW PO SCH (08:08)
[2021-07-02] MEDS: allopurinoL 300 MG TABLET PO SCH (08:08)
[2021-07-02] MEDS: Furosemide 20 MG TABLET PO SCH (08:08)
[2021-07-02] MEDS ORDERED: Perflutren Lipid Microsphere 1.3 ML in 0.9 % Sodium Chloride 8.7 ML IVP PRN ×2 (08:44→19:01)
[2021-07-02 13:43] LABS: Iron 111 mcg/dL (50-170)
[2021-07-02 13:49] LABS: Ferritin 289 ng/mL (10-120)
[2021-07-02 13:56] LABS: Troponin I 0.16 ng/mL (< 0.04)
[2021-07-02 14:12] LABS: Basophils % 0.5 %; Eosinophils # 0.1 K/mcL (0.0-0.6); Eosinophils % 1.6 %; Hematocrit 45.5 % (35.3-44.9); Hemoglobin 14.7 g/dL (11.5-15.4); Lymphocytes # 1.3 K/mcL (0.6-4.6); Lymphocytes % 15.3 %; Mean Corpuscular HGB Conc 32.3 g/dL (31.6-35.5); Mean Corpuscular Hemoglobin 31.5 pg (28.0-33.3); Mean Corpuscular Volume 97.4 fL (83.0-100.0); Mean Platelet Volume 13.2 fL (9.4-12.4); Monocytes # 0.9 K/mcL (0.0-1.3); Monocytes % 10.7 %; Neutrophils # 5.9 K/mcL (1.6-8.9); Red Blood Count 4.67 M/mcL (3.82-4.97); Red Cell Distribution Width 13.5 % (11.5-14.5); Segmented Neutrophils % 70.9 %; White Blood Count 8.3 K/mcL (4.3-11.1)
[2021-07-02 14:13] LABS: Platelet Count 86 K/mcL (140-400); Platelet Estimate Decreased (Normal)
[2021-07-03 06:56] LABS: Hemoglobin 13.9 g/dL (11.5-15.4); Mean Corpuscular Volume 95.9 fL (83.0-100.0)
[2021-07-03 06:57] LABS: Hematocrit 42.3 % (35.3-44.9); Immature Platelets 16.3 % (1.1-6.1); Mean Corpuscular HGB Conc 32.9 g/dL (31.6-35.5); Mean Corpuscular Hemoglobin 31.5 pg (28.0-33.3); Mean Platelet Volume 13.6 fL (9.4-12.4); Red Blood Count 4.41 M/mcL (3.82-4.97); Red Cell Distribution Width 13.4 % (11.5-14.5); White Blood Count 5.2 K/mcL (4.3-11.1)
[2021-07-03] MEDS: Insulin LISPRO 300 UNITS/3 ML VIAL SUBQ SCH ×4 (06:59→21:09)
[2021-07-03 07:22] LABS: BUN/Creatinine Ratio 21 (6-26); Blood Urea Nitrogen 19 mg/dL (8-23); Calcium 9.1 mg/dL (8.6-10.3); Carbon Dioxide 25 mEq/L (23-29); Chloride 102 mEq/L (98-107); Glucose 146 mg/dL (70-105); Osmolality,Calculated 287 (280-300); Potassium 3.4 mEq/L (3.5-5.1); Sodium 136 mEq/L (136-145); eGFR For African Americans > 60 (> 60); eGFR For Non-African Americans 60 (> 60)
[2021-07-03] MEDS: *HR* HYDROcodone/Acet 7.5/325 mg TABLET PO PRN (07:36)
[2021-07-03] MEDS: hydrOXYzine pamoate 25 MG CAPSULE PO SCH (07:38)
[2021-07-03] MEDS: allopurinoL 300 MG TABLET PO SCH (07:38)
[2021-07-03] MEDS: Aspirin 81 MG TAB.CHEW PO SCH (07:38)
[2021-07-03] MEDS: Furosemide 20 MG TABLET PO SCH (07:38)
[2021-07-03] MEDS: Famotidine 20 MG TABLET PO SCH (07:38)
[2021-07-03] MEDS: Magnesium Oxide 400 MG TABLET PO SCH ×2 (09:49→21:07)
[2021-07-03] MEDS: CLEAR EYES NATURAL TEARS 15 ML BOTTLE BOTH EYES SCH ×4 (10:42→21:10)
[2021-07-03 10:50] LABS: Estimated Average Glucose 103 mg/dl; Hemoglobin A1C 5.2 %
[2021-07-03] MEDS: *HR* OxyCODONE Immed Rel 5 MG TABLET PO PRN ×2 (16:07→23:49)
[2021-07-04 05:19] LABS: Hematocrit 41.3 % (35.3-44.9); Hemoglobin 12.9 g/dL (11.5-15.4); Immature Platelets 16.8 % (1.1-6.1); Mean Corpuscular HGB Conc 31.2 g/dL (31.6-35.5); Mean Corpuscular Hemoglobin 30.7 pg (28.0-33.3); Mean Corpuscular Volume 98.3 fL (83.0-100.0); Mean Platelet Volume 13.5 fL (9.4-12.4); Red Blood Count 4.2 M/mcL (3.82-4.97); Red Cell Distribution Width 13.4 % (11.5-14.5); White Blood Count 5.6 K/mcL (4.3-11.1)
[2021-07-04 05:28] LABS: Calcium 8.6 mg/dL (8.6-10.3); Potassium 3.5 mEq/L (3.5-5.1)
[2021-07-04] MEDS: Insulin LISPRO 300 UNITS/3 ML VIAL SUBQ SCH ×4 (07:59→20:00)
[2021-07-04] MEDS: hydrOXYzine pamoate 25 MG CAPSULE PO SCH (09:39)
[2021-07-04] MEDS: Aspirin 81 MG TAB.CHEW PO SCH (09:39)
[2021-07-04] MEDS: CLEAR EYES NATURAL TEARS 15 ML BOTTLE BOTH EYES SCH ×4 (09:39→19:41)
[2021-07-04] MEDS: Furosemide 20 MG TABLET PO SCH (09:39)
[2021-07-04] MEDS: Famotidine 20 MG TABLET PO SCH (09:39)
[2021-07-04] MEDS: allopurinoL 300 MG TABLET PO SCH (09:39)
[2021-07-04] MEDS: Magnesium Oxide 400 MG TABLET PO SCH ×2 (09:39→19:39)
[2021-07-04] MEDS: *HR* OxyCODONE Immed Rel 5 MG TABLET PO PRN ×2 (09:41→17:36)
[2021-07-05] MEDS: *HR* OxyCODONE Immed Rel 5 MG TABLET PO PRN ×3 (05:15→19:39)
[2021-07-05 06:22] LABS: Red Cell Distribution Width 13.3 % (11.5-14.5)
[2021-07-05 06:24] LABS: Hematocrit 41.4 % (35.3-44.9); Hemoglobin 13.2 g/dL (11.5-15.4); Immature Platelets 13.8 % (1.1-6.1); Mean Corpuscular HGB Conc 31.9 g/dL (31.6-35.5); Mean Corpuscular Hemoglobin 31.2 pg (28.0-33.3); Mean Corpuscular Volume 97.9 fL (83.0-100.0); Mean Platelet Volume 13.6 fL (9.4-12.4); Red Blood Count 4.23 M/mcL (3.82-4.97); White Blood Count 5.1 K/mcL (4.3-11.1)
[2021-07-05 06:38] LABS: BUN/Creatinine Ratio 16 (6-26); Blood Urea Nitrogen 15 mg/dL (8-23); Calcium 8.7 mg/dL (8.6-10.3); Carbon Dioxide 31 mEq/L (23-29); Chloride 101 mEq/L (98-107); Glucose 131 mg/dL (70-105); Osmolality,Calculated 289 (280-300); Potassium 3.5 mEq/L (3.5-5.1); Sodium 138 mEq/L (136-145); eGFR For African Americans > 60 (> 60); eGFR For Non-African Americans 58 (> 60)
[2021-07-05] MEDS: Insulin LISPRO 300 UNITS/3 ML VIAL SUBQ SCH ×4 (08:15→19:39)
[2021-07-05] MEDS: Furosemide 20 MG TABLET PO SCH (09:20)
[2021-07-05] MEDS: Famotidine 20 MG TABLET PO SCH (09:20)
[2021-07-05] MEDS: hydrOXYzine pamoate 25 MG CAPSULE PO SCH (09:20)
[2021-07-05] MEDS: allopurinoL 300 MG TABLET PO SCH (09:20)
[2021-07-05] MEDS: Magnesium Oxide 400 MG TABLET PO SCH ×2 (09:20→19:38)
[2021-07-05] MEDS: CLEAR EYES NATURAL TEARS 15 ML BOTTLE BOTH EYES SCH ×4 (09:21→19:40)
[2021-07-05] MEDS: Aspirin 81 MG TAB.CHEW PO SCH (09:21)
[2021-07-06 01:14] LABS: Mean Platelet Volume 13.4 fL (9.4-12.4)
[2021-07-06 01:16] LABS: Hematocrit 41.8 % (35.3-44.9); Hemoglobin 13.3 g/dL (11.5-15.4); Immature Platelets 13.8 % (1.1-6.1); Mean Corpuscular HGB Conc 31.8 g/dL (31.6-35.5); Mean Corpuscular Volume 97.4 fL (83.0-100.0); Red Blood Count 4.29 M/mcL (3.82-4.97); Red Cell Distribution Width 13.2 % (11.5-14.5); White Blood Count 6.3 K/mcL (4.3-11.1)
[2021-07-06 01:24] LABS: Calcium 9.1 mg/dL (8.6-10.3); Potassium 3.7 mEq/L (3.5-5.1)
[2021-07-06] MEDS: *HR* OxyCODONE Immed Rel 5 MG TABLET PO PRN ×3 (01:39→21:24)
[2021-07-06] MEDS: Insulin LISPRO 300 UNITS/3 ML VIAL SUBQ SCH ×4 (07:53→21:26)
[2021-07-06] MEDS: Aspirin 81 MG TAB.CHEW PO SCH (08:23)
[2021-07-06] MEDS: Magnesium Oxide 400 MG TABLET PO SCH ×2 (08:24→21:26)
[2021-07-06] MEDS: Famotidine 20 MG TABLET PO SCH (08:24)
[2021-07-06] MEDS: hydrOXYzine pamoate 25 MG CAPSULE PO SCH (08:24)
[2021-07-06] MEDS: allopurinoL 300 MG TABLET PO SCH (08:24)
[2021-07-06] MEDS: Furosemide 20 MG TABLET PO SCH (08:24)
[2021-07-06] MEDS: CLEAR EYES NATURAL TEARS 15 ML BOTTLE BOTH EYES SCH ×4 (08:28→21:26)
[2021-07-06] MEDS: Lactulose Oral Soln 20 GM/30 ML UDC PO PRN (11:24)
[2021-07-06] MEDS: predniSONE 5 MG TABLET PO SCH (17:15)
[2021-07-07 01:22] LABS: Hematocrit 41.6 % (35.3-44.9); Hemoglobin 13.3 g/dL (11.5-15.4); Mean Corpuscular Hemoglobin 31.1 pg (28.0-33.3); Mean Corpuscular Volume 97.4 fL (83.0-100.0); Red Blood Count 4.27 M/mcL (3.82-4.97); Red Cell Distribution Width 13.2 % (11.5-14.5); White Blood Count 6.2 K/mcL (4.3-11.1)
[2021-07-07 01:23] LABS: Platelet Count 94 K/mcL (140-400)
[2021-07-07 01:47] LABS: BUN/Creatinine Ratio 16 (6-26); Blood Urea Nitrogen 17 mg/dL (8-23); Calcium 9.1 mg/dL (8.6-10.3); Carbon Dioxide 32 mEq/L (23-29); Chloride 99 mEq/L (98-107); Glucose 149 mg/dL (70-105); Osmolality,Calculated 292 (280-300); Potassium 4.2 mEq/L (3.5-5.1); Sodium 139 mEq/L (136-145); eGFR For African Americans > 60 (> 60); eGFR For Non-African Americans 50 (> 60)
[2021-07-07] MEDS: *HR* OxyCODONE Immed Rel 5 MG TABLET PO PRN ×3 (06:07→21:21)
[2021-07-07] MEDS: Insulin LISPRO 300 UNITS/3 ML VIAL SUBQ SCH ×4 (07:43→21:18)
[2021-07-07] MEDS: Aspirin 81 MG TAB.CHEW PO SCH (09:58)
[2021-07-07] MEDS: hydrOXYzine pamoate 25 MG CAPSULE PO SCH (09:58)
[2021-07-07] MEDS: predniSONE 5 MG TABLET PO SCH (09:58)
[2021-07-07] MEDS: allopurinoL 300 MG TABLET PO SCH (09:58)
[2021-07-07] MEDS: Famotidine 20 MG TABLET PO SCH (09:59)
[2021-07-07] MEDS: Magnesium Oxide 400 MG TABLET PO SCH ×2 (09:59→21:18)
[2021-07-07] MEDS: Furosemide 20 MG TABLET PO SCH (09:59)
[2021-07-07] MEDS: CLEAR EYES NATURAL TEARS 15 ML BOTTLE BOTH EYES SCH ×4 (10:00→21:18)
[2021-07-07 10:20] LABS: % Iron Saturation 45 % (15-50); Transferrin 177 mg/dL (200-400)
[2021-07-08] MEDS: *HR* OxyCODONE Immed Rel 5 MG TABLET PO PRN ×3 (05:52→19:34)
[2021-07-08] MEDS: Magnesium Oxide 400 MG TABLET PO SCH ×2 (07:10→19:35)
[2021-07-08] MEDS: Famotidine 20 MG TABLET PO SCH (07:10)
[2021-07-08] MEDS: hydrOXYzine pamoate 25 MG CAPSULE PO SCH (07:10)
[2021-07-08] MEDS: Aspirin 81 MG TAB.CHEW PO SCH (07:10)
[2021-07-08] MEDS: Furosemide 20 MG TABLET PO SCH (07:11)
[2021-07-08] MEDS: predniSONE 5 MG TABLET PO SCH (07:11)
[2021-07-08] MEDS: Insulin LISPRO 300 UNITS/3 ML VIAL SUBQ SCH ×4 (07:11→21:00)
[2021-07-08] MEDS: allopurinoL 300 MG TABLET PO SCH (07:11)
[2021-07-08] MEDS: CLEAR EYES NATURAL TEARS 15 ML BOTTLE BOTH EYES SCH ×4 (07:15→19:37)
[2021-07-09] MEDS: Famotidine 20 MG TABLET PO SCH (07:58)
[2021-07-09] MEDS: predniSONE 5 MG TABLET PO SCH (07:58)
[2021-07-09] MEDS: Aspirin 81 MG TAB.CHEW PO SCH (07:58)
[2021-07-09] MEDS: Lactulose Oral Soln 20 GM/30 ML UDC PO PRN (07:58)
[2021-07-09] MEDS: *HR* OxyCODONE Immed Rel 5 MG TABLET PO PRN ×3 (07:58→18:57)
[2021-07-09] MEDS: hydrOXYzine pamoate 25 MG CAPSULE PO SCH (07:58)
[2021-07-09] MEDS: Magnesium Oxide 400 MG TABLET PO SCH ×2 (07:58→20:40)
[2021-07-09] MEDS: allopurinoL 300 MG TABLET PO SCH (07:58)
[2021-07-09] MEDS: CLEAR EYES NATURAL TEARS 15 ML BOTTLE BOTH EYES SCH ×2 (07:59→13:23)
[2021-07-09] MEDS: Insulin LISPRO 300 UNITS/3 ML VIAL SUBQ SCH ×4 (07:59→20:41)
[2021-07-09] MEDS: Furosemide 20 MG TABLET PO SCH (07:59)
[2021-07-09] MEDS ORDERED: CLEAR EYES NATURAL TEARS 15 ML BOTTLE BOTH EYES PRN (13:22)
[2021-07-10] MEDS: Insulin LISPRO 300 UNITS/3 ML VIAL SUBQ SCH ×4 (07:40→20:48)
[2021-07-10] MEDS: Magnesium Oxide 400 MG TABLET PO SCH ×2 (08:48→20:47)
[2021-07-10] MEDS: Furosemide 20 MG TABLET PO SCH (08:48)
[2021-07-10] MEDS: Famotidine 20 MG TABLET PO SCH (08:48)
[2021-07-10] MEDS: predniSONE 5 MG TABLET PO SCH (08:50)
[2021-07-10] MEDS: hydrOXYzine pamoate 25 MG CAPSULE PO SCH (08:50)
[2021-07-10] MEDS: *HR* OxyCODONE Immed Rel 5 MG TABLET PO PRN ×2 (08:50→20:45)
[2021-07-10] MEDS: allopurinoL 300 MG TABLET PO SCH (08:50)
[2021-07-10] MEDS: Aspirin 81 MG TAB.CHEW PO SCH (08:50)
[2021-07-11] MEDS: *HR* OxyCODONE Immed Rel 5 MG TABLET PO PRN ×2 (05:49→19:35)
[2021-07-11 07:18] VITALS: PULSE 60; O2SAT 93
[2021-07-11] MEDS: Insulin LISPRO 300 UNITS/3 ML VIAL SUBQ SCH ×2 (08:30→11:43)
[2021-07-11] MEDS: Aspirin 81 MG TAB.CHEW PO SCH (08:43)
[2021-07-11] MEDS: Furosemide 20 MG TABLET PO SCH (08:44)
[2021-07-11] MEDS: hydrOXYzine pamoate 25 MG CAPSULE PO SCH (08:44)
[2021-07-11] MEDS: Famotidine 20 MG TABLET PO SCH (08:44)
[2021-07-11] MEDS: Magnesium Oxide 400 MG TABLET PO SCH (08:44)
[2021-07-11] MEDS: allopurinoL 300 MG TABLET PO SCH (08:44)
[2021-07-11] MEDS: predniSONE 5 MG TABLET PO SCH (08:45)
[2021-07-11 11:45] VITALS: BP 102/58; TEMP 98.1
[2021-07-11 15:37] LABS: Influenza A PCR Negative (Negative); Influenza B PCR Negative (Negative); Resp. Syncytial Virus PCR Negative (Negative)
[2021-07-11 15:44] LABS: SARS-CoV-2 by PCR (In House) Negative (Negative)
== END 2021-07-11 20:15 | DRG 463 ==
LOC: 3BNU → SUATTDRO 14:54
PROVIDERS: ADMIT Pharmacist; ATTEND Internal Medicine